=== PATIENT | male | born 1945 | race Caucasian/White ===

== ENCOUNTER → 2016-12-31 | Outpatient (CLI) | payer MEDICARE, OTHER ==
[~2016-12-31] MED LIST: ANTIDEPRESSANT; DIABETES MED; GLUCOPHAGE1000 MG PO; HIGH BP MED; TRIAMCINOLONE0.1% TP; [UNRECOGNIZED DRUG - OTHER]
== END ==
LOC: COL.RAD 12-30 09:45
DX: Z13.6 Encounter for screening for cardiovascular disorders (principal); Z87.891 Personal history of nicotine dependence

== ENCOUNTER → 2017-07-31 | Outpatient (CLI) | payer MEDICARE, OTHER | LOC: COL.RAD 07:15 | DX: H47.42 Disorders of optic chiasm in (due to) neoplasm (principal); H53.47 Heteronymous bilateral field defects; E23.6 Other disorders of pituitary gland; I10 Essential (primary) hypertension; E11.9 Type 2 diabetes mellitus without complications | CPT/HCPCS: A9585 ==

== ENCOUNTER 2019-04-30 03:51 | Emergency (ER) | payer MEDICARE, OTHER ==
[~2019-04-30] VITALS: Ht 180.3 cm; Wt 85.9 kg
[~2019-04-30 03:51] MED LIST changes: +AXIRON30 MG/1.5 TP; +CORTEF 10MG TAB10 MG; +CORTEF 10MG TAB10 MG PO; +COZAAR100 MG PO; +DDAVP; +JARDIANCE25 PO; +LEXAPRO 10MG10 MG PO; +LIPITOR 10MG10 MG PO; +SYNTHROID0.088 MG/T PO; +TOPROL XL 50MG50 MG PO; +TRULICITY1.5 MG/0.5 SQ
[2019-04-30 03:58] VITALS: TEMP 97.5
[2019-04-30 04:12] LABS: BASO # 0.1 (0.0-0.2); BASO % 0.8 % (0.0-2.0); EOS # 0.3 (0.0-0.7); EOS % 2.4 % (0-4.0); GRAN # 8.5 (1.4-6.5); GRAN % 69.4 % (42.2-75.2); LYMPH # 2.3 (1.2-3.4); LYMPH % 19.1 % (20.0-51.0); MEAN CELL VOLUME 85 fl (80.0-100.0); MEAN CORPUSCULAR HGB CONC 34 g/dl (33.0-37.0); MEAN PLATELET VOLUME 8.7 fl (7.4-10.4); MONO % 7.9 % (1.7-9.3); PLATELET COUNT 247 K/mm3 (130-400); RED BLOOD COUNT 6.76 M/mm3 (4.20-5.60); REDCELL DISTRIBUTION WIDTH-CV 14.3 % (11.5-14.5)
[2019-04-30 04:17] LABS: HEMATOCRIT 57.2 % (42.0-52.0); HEMOGLOBIN 19.2 g/dl (13.5-18.0); MEAN CORPUSCULAR HEMOGLOBIN 28 pg (27.0-31.0)
[2019-04-30 04:21] LABS: ALANINE AMINOTRANSFERASE 33 U/L (21-72); ALBUMIN 5.3 gm/dL (3.5-5.0); ALKALINE PHOSPHATASE 97 U/L (50-136); ANION GAP 15 mmol/L (7-16); AST,SGOT 40 U/L (15-37); BILIRUBIN,TOTAL 1.6 mg/dL (0.0-1.0); BLOOD UREA NITROGEN 17 mg/dL (9-20); C-REACTIVE PROTEIN < 0.5 mg/dL (0.0-0.9); CALCIUM 10.6 mg/dL (8.4-10.2); CARBON DIOXIDE 24 mmol/L (22-30); CHLORIDE 102 mmol/L (98-107); CREATININE, serum 0.84 (0.66-1.25); GLUCOSE 176 mg/dL (74-106); LIPASE 314 U/L (23-300); POTASSIUM 4.3 mmol/L (3.4-5.0); SODIUM 142 mmol/L (137-145); TOTAL PROTEIN 8.7 gm/dL (6.4-8.2)
[2019-04-30 04:38] LABS: COLLECTION METHOD CLEAN CATCH
[2019-04-30 04:43] LABS: PH 5 (5-8); SQUAMOUS EPITHELIAL None Seen /hpf; URINE APPEARANCE Clear; URINE BACTERIA None Seen /hpf; URINE BILIRUBIN Negative (NEGATIVE); URINE BLOOD 1+ (NEGATIVE); URINE COLOR Yellow; URINE GLUCOSE 3+ (NEGATIVE); URINE KETONE Negative (NEGATIVE); URINE LEUKOCYTE ESTERASE Negative (NEGATIVE); URINE NITRATE Negative (NEGATIVE); URINE PROTEIN(semi-quant) Negative (NEGATIVE); URINE RBC 0-2 /hpf; URINE UROBILINOGEN Negative (NEGATIVE)
[2019-04-30] MEDS ORDERED: AXIRON30 MG/1.5 ×2 (05:11→05:12)
[2019-04-30] MEDS ORDERED: CORTEF 10MG TAB10 MG (05:20)
[2019-04-30 06:17] VITALS: BP 170/98; PULSE 83
== END 2019-04-30 06:17 | disposition home or self-care (01) ==
LOC: COL.ER 03:51
PROVIDERS: Emergency Medicine
DX: K56.41 Fecal impaction (principal); R33.9 Retention of urine, unspecified; E11.9 Type 2 diabetes mellitus without complications; Z79.84 Long term (current) use of oral hypoglycemic drugs
CPT/HCPCS: J7030

== ENCOUNTER 2019-07-21 15:43 | Emergency (ER) | payer MEDICARE, OTHER ==
[~2019-07-21] VITALS: Ht 180.3 cm; Wt 84.1 kg
[~2019-07-21 15:43] MED LIST changes: +AXIRON30 MG/1.5
[2019-07-21 15:46] VITALS: TEMP 98.5
[2019-07-21 16:08] LABS: BASO # 0.1 (0.0-0.2); BASO % 1.2 % (0.0-2.0); EOS # 0.4 (0.0-0.7); EOS % 5.1 % (0-4.0); GRAN # 4.1 (1.4-6.5); GRAN % 52.1 % (42.2-75.2); LYMPH # 2.4 (1.2-3.4); LYMPH % 30.2 % (20.0-51.0); MEAN CELL VOLUME 85 fl (80.0-100.0); MEAN CORPUSCULAR HGB CONC 35 g/dl (33.0-37.0); MEAN PLATELET VOLUME 8.8 fl (7.4-10.4); MONO # 0.9 (0.1-0.6); MONO % 11.1 % (1.7-9.3); PLATELET COUNT 205 K/mm3 (130-400); REDCELL DISTRIBUTION WIDTH-CV 13.2 % (11.5-14.5)
[2019-07-21 16:11] LABS: HEMATOCRIT 52.8 % (42.0-52.0); HEMOGLOBIN 18.2 g/dl (13.5-18.0); MEAN CORPUSCULAR HEMOGLOBIN 29 pg (27.0-31.0)
[2019-07-21 16:15] LABS: ALBUMIN 4.4 gm/dL (3.5-5.0); BILIRUBIN,TOTAL 2.2 mg/dL (0.0-1.0); CALCIUM 10.2 mg/dL (8.4-10.2); CREATININE, serum 0.89 (0.66-1.25); POTASSIUM 3.9 mmol/L (3.4-5.0); TOTAL PROTEIN 7.5 gm/dL (6.4-8.2)
[2019-07-21 16:18] LABS: INR 1.1 (0.8-3.0); PROTHROMBIN TIME 12.5 SECONDS (9.7-12.8)
[2019-07-21] MEDS ORDERED: AXIRON30 MG/1.5 TP (16:32)
[2019-07-21] MEDS ORDERED: TOPROL XL 50MG50 MG PO (16:32)
[2019-07-21] MEDS ORDERED: BENEFIBER (16:33)
[2019-07-21] MEDS ORDERED: ZOFRAN ODT8 MG PO (16:33)
[2019-07-21] MEDS ORDERED: MIRALAX PA17 GM/Dose PO (16:34)
[2019-07-21] MEDS ORDERED: COLACE 100100 MG/CAP PO (16:34)
[2019-07-21 16:36] LABS: TROPONIN-I 0.392 ng/mL (0.000-0.035)
[2019-07-21 17:11] VITALS: BP 142/98; PULSE 77
== END 2019-07-21 17:11 | disposition short-term general hospital (02) ==
LOC: COL.ER 15:43
PROVIDERS: Family Medicine
DX: I21.09 ST elevation (STEMI) myocardial infarction involving other coronary artery of anterior wall (principal); I10 Essential (primary) hypertension; E11.9 Type 2 diabetes mellitus without complications; Z79.84 Long term (current) use of oral hypoglycemic drugs
CPT/HCPCS: J1644; J3101